=== PATIENT | female | born 1950 | race Caucasian/White ===

== ENCOUNTER → 2018-07-09 19:00 | Outpatient (CLI) | payer MEDICARE, OTHER | END | disposition home or self-care (01) | LOC: D.MAMMO 04-30 14:30 → D.US 04-30 15:00 → D.MAMMO 06-22 09:30 | DX: Z85.3 Personal history of malignant neoplasm of breast (principal) ==

== ENCOUNTER 2019-07-29 08:00 | Outpatient (CLI) | payer MEDICARE, OTHER | END 2019-07-29 23:59 | disposition home or self-care (01) | LOC: D.MAMMO 08:00 | PROVIDERS: ATTEND Family Medicine | DX: Z85.3 Personal history of malignant neoplasm of breast (principal) ==

== ENCOUNTER 2019-11-16 00:50 | Emergency (ER) | payer MEDICARE, OTHER ==
[~2019-11-16] VITALS: Ht 157.5 cm; Wt 61.4 kg
[2019-11-16 00:52] VITALS: Ht 157.5 cm; Wt 61.4 kg
[2019-11-16] MEDS ORDERED: HYDROCODON-ACE1 EAC7 PO (02:48)
[2019-11-16 03:05] VITALS: BP 134/73
== END 2019-11-16 03:06 | disposition home or self-care (01) ==
LOC: D.ER 00:50
DX: S22.31XG Fracture of one rib, right side, subsequent encounter for fracture with delayed healing (principal); X58.XXXD Exposure to other specified factors, subsequent encounter; I10 Essential (primary) hypertension; M54.9 Dorsalgia, unspecified

== ENCOUNTER → 2020-03-04 10:11 | Outpatient (CLI) | payer MEDICARE, OTHER ==
[2019-11-16 00:52] VITALS: BMI 24.7
[~2020-03-04 10:11] MED LIST: HYDROCODON-ACE1 EAC7 PO
== END | disposition home or self-care (01) ==
LOC: D.MRI 10:11
PROVIDERS: ATTEND Orthopaedic Surgery
DX: S83.242A Other tear of medial meniscus, current injury, left knee, initial encounter (principal)

== ENCOUNTER → 2020-03-18 09:54 | Outpatient (CLI) | payer MEDICARE, OTHER ==
[2019-11-16 00:52] VITALS: BMI 24.7
== END | disposition home or self-care (01) ==
LOC: D.HCCARDIO 09:54
PROVIDERS: ATTEND Internal Medicine Cardiovascular Disease
DX: R00.2 Palpitations (principal)

== ENCOUNTER 2020-04-01 11:55 | Outpatient (CLI) | payer MEDICARE, OTHER ==
[~2020-04-01] VITALS: Ht 157.5 cm; Wt 61.4 kg
--- NOTE | ~2020-04-01 | HEMODYNAMI ---
PATIENT:CATHERINE SAN MEDICAL RECORD: [id number] : 48 LOCATION:[facility] ADMISSION DATE: 04/01/20 Generatedon:04/01/202015:32 Patient name: CATHERINE SAN Patient #: [id number] SSN: [id number] : 1950 Date of study: 04/01/2020 Page: Of Hemodynamic Procedure Report Patient Data Patient Demographics Procedure consent was obtained First Name: CATHERINE Gender: Female Last Name: MENA : 1950 Middle Initial: S Age: 69 year(s) Patient #: [id number] Race: SSN: [id number] Additional ID: [id number] Contact details [address]: [address] [place] [address] State: [place] City: [place] Zip code: [address] Past Medical History History of disease Date Diagnosis Comments CAD Allergies Allergen Reaction Date Comments Reported Sulfa drugs 04/01/2020 Admission Admission Data Admission Date: 04/01/2020 Admission Time: 11:55 Insurance Payor: Medicare Height (in.): 62 BSA: 1.62 (m2) Height (cm.): 157.48 BMI: 24.69 (kg/m2) Weight (lbs.): 135 Weight (kg.): 61.23 Current Diagnosis Diagnosis Description Stable angina Lab Results Lab Result Date: 04/01/2020 Lab Result Time: 0:00 Biochemistry Name Units Result Min Max Creatinine mg/dl 1 --(--*-)-- 0.6 1.3 eGFR ml/min 58 *-(----)-- 90 120 NONAFRICAN CBC Name Units Result Min Max Hematocrit % 45 --(*---)-- 42 54 Hemoglobin g/dl 14.5 --(*---)-- 13.5 17.5 Procedure Procedure Types Cath Procedure Diagnostic Procedure C Sedation Charges Moderate Sedation up to 15 minutes Procedure Description Procedure Date Procedure Date: 04/01/2020 Procedure Start Time: 15:16 Procedure End Time: 15:31 Procedure Staff Name Function Tommy Martins MD Performing Physician Mirian Laureano RN Monitor Saundra Page RN Nurse Chana eMjia RT Scrub Procedure Data Cath Procedure Fluoroscopy Diagnostic fluoroscopy Total fluoroscopy Time: 2 time: 2 min min Diagnostic fluoroscopy Total fluoroscopy dose: 230 dose: 230 mGy mGy Contrast Material Contrast Material Type Amount (ml) Isovue 300 37 Entry Location Entry Primary Successful Side Size Upsize Upsize Entry Closure Succes sful Closure Location (Fr) 1 (Fr) 2 (Fr) Remarks Device Remarks Femoral Right 5 Fr Exoseal artery Estimated blood loss: 5 ml Diagnostic catheters Device Type Used For End Catheter Placement MULTIPACK 3DRC 5Fr Procedure catheter MULTIPACK JL 4.0 5Fr Procedure catheter MULTIPACK Pigtail 5 Fr Procedure catheter Procedure Complications No complications Procedure Medications Medication Administration Route Dosage 0.9% NaCl I.V. 100 ml/hr Lidocaine 2% added to field 20 Oxygen NC 3 l/min Heparin Flush Bag added to field 2 bags (1000units/500ml NS) Versed I.V. 1 mg Fentanyl 50 mcg Versed I.V. 1 mg Fentanyl 50 mcg Versed I.V. 1 mg Versed I.V. 1 mg Hemodynamics Rest BSA: 1.62 (m2) HGB: 14.5 (g/dl) O2 Consumption: Estimated: 139.92 (ml/min) O2 Co nsumption indexed: Estimated:86.37 (ml/min/m) Heart Rate: 55 (bpm) Pressure Samples Time Site Value (mmHg) Purpose Heart Use Rate(bpm) 15:23 LV 141/8,12 Snapshot 33 Gradients Valve Time Site Site Mean SEP/DFP Peak To Heart Use 1 2 (mmHg) (sec/min) Peak Rate (mmHg) (bpm) Aortic 15:24 LV AO 56 Snapshots Pre Cath Intra NCS Post Cath Vital Signs Time Heart Resp SPO2 etCO2 NIBP (mmHg) Rhythm Pain Sedation Rate (ipm) (%) (mmHg) Status Level (bpm) 14:44:45 54 15 100 36.6 182/79(152) NSR 0 (11) 10(A) , No pain 14:49:09 52 17 100 35.8 166/79(146) NSR 0 (11) 10(A) , No pain 14:53:41 48 25 99 0 125/58(96) NSR 0 (11) 10(A) , No pain 14:58:41 46 19 98 38 Measuring NSR 0 (11) 10(A) , No pain 14:58:47 47 21 98 38 122/62(97) NSR 0 (11) 10(A) , No pain 15:03:03 47 17 98 38 126/61(99) NSR 0 (11) 10(A) , No pain 15:08:02 47 20 99 37.3 Measuring NSR 0 (11) 10(A) , No pain 15:08:20 48 13 99 37.3 137/63(111) NSR 0 (11) 10(A) , No pain 15:12:40 48 11 100 0 143/67(127) NSR 0 (11) 10(A) , No pain 15:17:39 49 13 100 15.6 Measuring NSR 0 (11) 10(A) , No pain 15:17:45 50 13 100 15.6 150/69(109) NSR 0 (11) 9(A) , No pain 15:22:45 55 22 100 0 Measuring NSR 0 (11) 9(A) , No pain 15:22:49 56 18 100 0 146/76(116) NSR 0 (11) 9(A) , No pain 15:27:48 52 14 100 28.3 Measuring NSR 0 (11) 10(A) , No pain 15:27:58 55 11 100 26.8 144/66(117) NSR 0 (11) 10(A) , No pain Medications Time Medication Route Dose Verified Delivered Reason Notes Effe ctiveness by by 14:43:57 0.9% NaCl I.V. 100 Tommy Saundra used for ml/hr Eliezer Page deaf/hard of hearing specialist 14:44:08 Lidocaine 2% added 20ml Tommy Saundra for local to vial Eliezer Page anesthetic field RN 14:44:16 Oxygen NC 3 Tommy Saundra for low 02 l/min Eliezer Page sats RN 14:44:26 Heparin Flush added 2 Tommy Saundra used for Bag to bags Eliezer Page procedure (1000units/500ml field RN NS) 15:14:28 Versed I.V. 1 mg Tommy Saundra for Eliezer Page sedation RN 15:14:37 Fentanyl 50 Tommy Saundra for mcg Eliezer BAEZ Camilo sedation RN 15:18:57 Versed I.V. 1 mg Tommy Saundra for Eliezer BAEZ Camilo sedation RN 15:19:02 Fentanyl 50 Tommy Saundra for mcg Eliezer BAEZ Camilo sedation RN 15:22:50 Versed I.V. 1 mg Tommy Saundra for Eliezer BAEZ Camilo sedation RN 15:25:42 Versed I.V. 1 mg Tommy Saundra for Eliezer BAEZ Camilo sedation customer business manager Log Time Note 14:07:00 Informed consent obtained and on chart 14:13:05 ACC Patient presents with Stable Angina CCS Anginal Class 1--Ordinary physical activity does not cause angina, angina occurs with strenuos, rapid, or prolonged activity.. 14:13:18 ACCPatient has been prescribed/administered the following anti-anginal medication within the last 2 weeks: None 14:13:23 Procedure Status Elective Heart Cath (OP). 14:13:26 Time tracking: Regular hours (M-F 7:00 - 5:00) 14:13:31 Plan of Care:Hemodynamics will remain stable., Cardiac rhythm will remain stable., Comfort level will be maintained., Respiratory function will remain adequate., Patient/ family verbilizes understanding of procedure., Procedure tolerated without complication., Recovers from procedure without complications.. 14:14:35 Patient allergic to Sulfa drugs 14:14:49 Insurance Payor : Medicare 14:14:56 Patient Height : 62 inches 14:15:06 Current Diagnosis : Stable angina 14:15:48 Lab Result : eGFR NONAFRICAN 58 ml/min 14:15:48 Lab Result : Hemoglobin 14.5 g/dl 14:15:48 Lab Result : Creatinine 1 mg/dl 14:15:48 Lab Result : Hematocrit 45 % 14:15:53 Diagnostic Cath Status : Elective 14:17:44 H&P Date Dictated: 04/01/2020 Within 30 days and on chart.. 14:17:57 Patient NPO since Midnight. 14:17:59 Is the patient allergic to Iodine/contrast media? No. 14:18:01 Was the patient premedicated? N/A 14:21:39 Is patient on blood thinner?No 14:21:58 Patient diabetic? No. 14:22:00 If diabetic: On Metformin? N/A 14:22:08 Patient not . Patient is over age 55. 14:27:05 Patient Weight : 135 lbs 14:28:30 Chana Mejia RT(R) sent for patient. Start room use. 14:28:45 Risk of Mortality: 0.1 14:28:49 Risk of blood transfusion: 0.9 14:28:53 Risk of KIMBER: 0.7 14:29:36 Stress Test: yes; abnormal anterior/apical 14:37:56 Patient received from Pre/Post Procedure Room to CCL 1 Alert and oriented. Tansferred to table in Supine position. 14:37:58 Warm blankets applied, and suleiman hugger turned on for patient comfort. 14:38:00 Correct patient and procedure confirmed by team. 14:38:00 ECG and BP/O2 sat monitors applied to patient. 14:38:04 Pre-procedure instructions explained to patient. 14:38:09 Pre-op teaching completed and patient verbalized understanding. 14:38:16 Family unavailable. 14:38:22 ACC The patient was administered the following blood thiners within the last 24 hours: None 14:38:27 Previous problem with sedation/anesthesia? No ? 14:38:29 Snore? No 14:38:30 Sleep apnea? No 14:38:32 Deviated septum? No 14:38:33 Opens mouth fully? Yes 14:38:34 Sticks out tongue? Yes 14:38:38 Airway obstruction? No ? 14:38:47 Dentures? No ? 14:43:29 Vital chart was started 14:43:57 0.9% NaCl 100 ml/hr I.V. was administered by Saundra Page RN; used for procedure; Verbal order read back and verified. 14:44:08 Lidocaine 2% 20ml vial added to field was administered by Saundra Page RN; for local anesthetic; Verbal order read back and verified. 14:44:16 Oxygen 3 l/min NC was administered by Saundra Page RN; for low 02 sats; Verbal order read back and verified. 14:44:26 Heparin Flush Bag (1000units/500ml NS) 2 bags added to field was administered by Saundra Page RN; used for procedure; Verbal order read back and verified. 14:47:24 Baseline sample Acquired. 14:47:33 Rhythm: sinus bradycardia 14:47:34 Full Disclosure recording started 14:47:53 Pre procedure: right dorsailis pedis pulse 2+ Normal; easily identifiable; not easily obliterated 14:47:57 Patient pain scale 0/10 ?. 14:48:02 IV patent on arrival in right hand with 0.9% NaCl at O. 14:48:13 Right groin area was prepped with chlora-prep and draped in sterile fashion 14:48:15 Alarms reviewed by R. N. 14:48:15 Sharps counted by scrub and verified by R.N. 14:49:36 Use device set Femoral Dx 14:49:37 ACIST Syringe (55724) opened to sterile field. 14:49:38 Bag Decanter (2002S) opened to sterile field. 14:49:38 Medline Cath Pack ([id number]) opened to sterile field. 14:49:42 ACIST Hand Control (07807) opened to sterile field. 14:49:43 ACIST Manifold (70049) opened to sterile field. 14:49:45 DIAGNOSTIC Multipack 5Fr catheter set ([id number]) opened to sterile field. 14:49:48 SHEATH 5FR [place] (JMV900) opened to sterile field. 14:49:49 EMERALD Guide Wire (515-086) opened to sterile field. 15:14:03 --------ALL STOP TIME OUT------ 15:14:03 Final Timeout: patient, procedure, and site verified with staff and physician. All members of the team are in agreement. 15:14:08 Right groin site verified by team. 15:14:12 Fire Safety Assessment: A--An alcohol-based skin anteseptic being used preoperatively., C--Open oxygen or nitrous oxide is being used., D--An ESU, laser, or fiber-optic light is being used. 15:14:18 Physical assessment completed. ASA score P 2 - A patient with mild systemic disease as per Tommy Martins MD. 15:14:24 3a) 45-59 Moderately reduced kidney function. 15:14:27 Maximum allowable contrast dose (3.7 X eGFR X 0.75)161 ml. 15:14:28 Versed 1 mg I.V. was administered by Saundra Page RN; for sedation; Verbal order read back and verified. 15:14:32 Sedation plan: IV Moderate Sedation Medication:Versed, Fentanyl 15:14:37 Fentanyl 50 mcg was administered by Saundra Page RN; for sedation; Verbal order read back and verified. 15:16:18 Procedure started. 15:16:45 Local anesthetic to right femoral artery with Lidocaine 2% by Tommy Martins MD.INITIAL ACCESS ONLY 15:17:07 A 5 Fr sheath was inserted into the Right Femoral artery 15:18:29 A MULTIPACK 3DRC 5Fr catheter was advanced over the wire and used for Procedure. 15:18:57 Versed 1 mg I.V. was administered by Saundra Page RN; for sedation; Verbal order read back and verified. 15:19:02 Fentanyl 50 mcg was administered by Saundra Page RN; for sedation; Verbal order read back and verified. 15:19:57 RCA angiography performed. 15:20:19 Catheter exchanged over wire. 15:20:26 A MULTIPACK JL 4.0 5Fr catheter was advanced over the wire and used for Procedure. 15:21:34 LCA angiography performed. 15:21:36 ACCDominant side:Right 15:22:17 Catheter exchanged over wire. 15:22:25 A MULTIPACK Pigtail 5 Fr catheter was advanced over the wire and used for Procedure. 15:22:50 Versed 1 mg I.V. was administered by Saundra Page RN; for sedation; Verbal order read back and verified. 15:23:50 LV hemodynamics recorded. 15:23:54 Injector settings: Ml/sec: 10, Volume: 20, 15:23:59 LV gram done using ROBLEDO 15:24:07 EF : 60 % 15:24:26 Catheter removed. 15:24:45 Sheath removed intact; hemostasis achieved with Exoseal to the Right Femoral artery. 15:25:08 EXOSEAL 5Fr (EX500) opened to sterile field. 15:25:42 Versed 1 mg I.V. was administered by Saundra Page RN; for sedation; Verbal order read back and verified. 15:26:09 Procedure ended.(Physican Out) 15::19 Fluoroscopy time 02.00 minutes. 15::24 Fluoroscopy dose: 230 mGy 15:26:24 Flurop Dose total: 230 15::48 Dose Area Product 82349 mGy/cm. 15::51 Contrast amount:Isovue 300 37ml. 15::54 Maximum allowable dose exceeded? No. 15:26:59 Sharps counted by scrub and verified by R.N. 15:27:26 Insertion/operative site no bleeding no hematoma. 15:27:35 Post-op/insertion site Right Femoral artery dressed using a 4 x 4 and Tegaderm. 15:27:40 Post right femoral artery:stable, soft, clean and dry 15:27:53 Post Procedure Pulses reassessed and unchanged 15:27:57 Post procedure: right dorsailis pedis pulse 2+ Normal; easily identifiable; not easily obliterated. 15:28:02 Post-procedure physical assessment completed. ASA score P 2 - A patient with mild systemic disease as per Tommy Martins MD. 15:28:04 Post procedure rhythm: unchanged. 15::26 Estimated blood loss: 5 ml 15:28:28 Post procedure instruction explained to patient.Patient verbalizes understanding. 15:28:36 Patient needs reinforcement of post procedure teaching. 15:29:33 Procedure type changed to Cath procedure, Diagnostic procedure, LHC, Sedation Charges, Moderate Sedation up to 15 minutes 15::27 Procedure and supply charges have been captured, reviewed, submitted and are correct. 15::31 Procedure Complication : No complications 15:31:33 Vital chart was stopped 15::35 LH Findings: mild to moderate CAD (<70%) 15:31:37 Operative report dictated upon procedure completion. 15::37 See physician's report for complete and final results. 15::39 Report given to Pre/Post Procedure Room. 15:31:41 Patient transfered to Pre/Post Procedure Room with Bed. 15::43 Procedure ended. 15::43 Full Disclosure recording stopped 15::51 End room use (Document Last) 15::55 ACC-PCI Only Patient was given prescriptions, or instructed by Tommy Martins MD to start/continue the following medications upon discharge: Aspirin Device Usage Item Name Manufacture Quantity Catalog Hospital Part Current Minimal L ot# / Number Charge Number [facility]# [facility] 02678 [id number] [id number] [id number] 20 Syringe Medical (38834) Systems Inc Bag Microtek 1 2001S 968328 85448 143949 5 Decanter Medical Inc. () Medline Medline 1 [id number] 539976 15783 334648 5 Cath Pack ([id number]) ACIST Hand Acist 1 50664 572439 237876 662408 5 Control Medical (48344) Systems Inc ACIST Acist 1 73571 597113 399727 455989 5 Manifold Medical (54481) Systems Inc DIAGNOSTIC Cardinal 1 NH9501 336105 53486 560151 30 Multipack Leonar3Do 5Fr catheter set (FW8239) SHEATH 5FR Terumo 1 AKK068 684839 506461 939179 5 [place] (GCB026) EMERALD Cardinal 1 256-403 595356 809749 655299 5 Guide Wire Leonar3Do (539-120) MULTIPACK Cardinal 1 235852 5 3DRC 5Fr Health catheter MULTIPACK Cardinal 1 [id number] 5 JL 4.0 5Fr Health catheter MULTIPACK Cardinal 1 193565 5 Pigtail 5 Health Fr catheter EXOSEAL 5Fr Cardinal 1 EX500 860893 645849 551332 10 (EX500) Health Signature Audit [place] Stage Time Signature Unsigned Intra-Procedure 04/01/2020 iMrian Laureano 3:32:04 PM RN Intra-Procedure 04/01/2020 Saundra 3:32:27 PM Camilo RN Intra-Procedure 04/01/2020 Tommy Martins MD 3:32:53 PM [facility] [address] [place] [address]
[2020-04-01] MEDS ORDERED: TOPROL XL25 MG PO (12:59)
[2020-04-01] MEDS ORDERED: MERIBIN5 MG PO (13:00)
[2020-04-01] MEDS ORDERED: TIROSINT75 MCG PO (13:00)
[2020-04-01] MEDS ORDERED: MULTI-DAY VITAM1 TAB PO (13:00)
[2020-04-01] MEDS ORDERED: CALCIUM 600 +1 EAC3 PO (13:01)
[2020-04-01 13:10] VITALS: BP 176/83; Ht 157.5 cm; Wt 61.4 kg
[2020-04-01 13:28] LABS: BASOPHILS 0.1 % (0-2); EOSINOPHILS 1.4 % (0-7); HEMOGLOBIN 14.5 g/dL (12-16); IMMATURE GRANULOCYTES 0.1 % (0-5); MCH 30.9 pg (26.0-34.0); MCHC 32.2 g/dL (31.0-37.0); MCV 95.7 fL (80.0-100.0); MEAN PLATELET VOLUME 10.2 fL (7.4-10.4); MONOCYTES 6.4 % (2-11); PLATELET COUNT 263 10x3/uL (130-400); WBC 9.6 10x3/uL (4.8-10.8)
[2020-04-01 13:29] LABS: ANION GAP 8.4 mmol/L (8-16); CARBON DIOXIDE 29.4 mmol/L (21.0-32.0); LDL-HDL RATIO 0.9 ratio (1.5-3.5); POTASSIUM - SERUM 3.8 mmol/L (3.5-5.1)
--- NOTE | 2020-04-01 15:36 | NUR ---
PT ARRIVED BY STRETCHER. PLACED ON MONITORS. ASSESSMENT COMPLETED. VSS AT THIS TIME. CALL LIGHT WITHIN REACH.
--- NOTE | 2020-04-01 15:51 | NUR ---
PT RESTING COMFORTABLY. VSS. RIGHT GROIN DRESSING C/D/I. NO S/S OF HEMATOMA NOTED. CALL LIGHT WITHIN REACH. VSS AT THIS TIME.
--- NOTE | 2020-04-01 16:25 | NUR ---
PT RESTING COMFORTABLY. VSS. CALL LIGHT WITHIN REACH. RIGHT GROIN DRESSING C/D/I. NO S/S OF HEMATOMA NOTED.
--- NOTE | 2020-04-01 17:01 | NUR ---
RIGHT GROIN DRESSING C/D/I. NO S/S OF HEMATOMA NOTED. CALL LIGHT WITHIN REACH. VSS AT THIS TIME. HEAD OF BED INC TO 30 DEGREES. TOLERATED WELL. SET UP WITH SANDWICH TRAY AND DRINK. DENIES NAUSEA/PAIN.
--- NOTE | 2020-04-01 17:30 | NUR ---
RIGHT GROIN DRESSING C/D/I. NO S/S OF HEMATOMA NOTED. CALL LIGHT WITHIN REACH. VSS AT THIS TIME. PIV D/C'D WITH CATH TIP INTACT. TOLERATED WELL. PT INSTRUCTED TO GET UP AND DRESSED AT THIS TIME. NO ASSISTANCE NEEDED.
--- NOTE | 2020-04-01 17:45 | NUR ---
PT AMBULATED TO RESTROOM. VOIDED WITHOUT DIFFICULTY. STEADY GAIT NOTED. DISCUSSED DISCHARGE INSTRUCTIONS WITH PT. SHE VOICED UNDERSTANDING.
--- NOTE | 2020-04-01 18:00 | NUR ---
PT TAKEN DOWN TO VEHICLE BY WHEELCHAIR. NO S/S OF DISTRESS NOTED. ALL BELONGINGS AND PAPERWORK IN HAND. RIGHT GROIN DRESSING C/D/I. NO S/S OF HEMATOMA NOTED.
== END 2020-04-01 18:00 | disposition home or self-care (01) ==
LOC: D.CATH 11:55
PROVIDERS: ATTEND Internal Medicine Cardiovascular Disease
DX: R07.89 Other chest pain (principal); R00.2 Palpitations; I10 Essential (primary) hypertension

== ENCOUNTER 2020-07-30 16:00 | Outpatient (CLI) | payer MEDICARE, OTHER ==
[2020-04-01 13:10] VITALS: BMI 24.7
[~2020-07-30 16:00] MED LIST changes: +CALCIUM 600 +1 EAC3 PO; +MERIBIN5 MG PO; +MULTI-DAY VITAM1 TAB PO; +TIROSINT75 MCG PO; +TOPROL XL25 MG PO
== END 2020-07-30 23:59 | disposition home or self-care (01) ==
LOC: D.MAMMO 16:00
PROVIDERS: ATTEND Nurse Practitioner Family
DX: Z85.3 Personal history of malignant neoplasm of breast (principal)